=== PATIENT | male | born 1955 | race Caucasian/White ===

== ENCOUNTER 2020-08-24 11:38 | Inpatient (IN) | payer OTHER ==
[~2020-08-24] VITALS: Ht 165.1 cm; Wt 72.6 kg
[2020-08-24 11:46] VITALS: BP 154/96
[2020-08-24 12:10] LABS: BASO % 0.3 % (0.0-1.0); EOS % 0.5 % (1.0-4.0); HEMATOCRIT 47.2 % (42.0-52.0); LYMPH # 3.4 10*3/uL (1.3-4.4); LYMPH % 44.3 % (27.0-41.0); MEAN CORPUSCULAR HGB 31.5 pg (27.0-31.0); MEAN CORPUSCULAR HGB CONC 33.5 g/dl (33.0-37.0); MEAN PLATELET VOLUME 11.1 fl (9.6-12.3); MONO # 0.7 10*3/uL (0.1-1.0); MONO % 8.7 % (3.0-9.0); NEUT # 3.5 10*3/uL (2.3-7.9); NEUT % 45.9 % (47.0-73.0); PLATELET COUNT AUTOMATED 237 10*3/uL (130-400); RED BLOOD COUNT 5.02 10*6/uL (4.50-5.90); WHITE BLOOD COUNT 7.6 10*3/uL (4.8-10.8)
--- NOTE | 2020-08-24 12:16 | NUR ---
PT DECLINES TO DISROBE AND IS NOT PRESENTING A FLIGHT RISK.
[2020-08-24 12:25] LABS: ALBUMIN 3.6 gm/dl (3.1-4.5); ALKALINE PHOSPHATASE 62 U/L (45-117); BUN 9 mg/dl (7-24); CHLORIDE 104 mmol/L (98-107); CREATININE 0.86 mg/dL (0.70-1.30); POTASSIUM 4.2 mmol/L (3.5-5.1); SGOT/AST 16 IU/L (3-35); SGPT/ALT 22 U/L (12-78); SODIUM 138 mmol/L (136-145); TOTAL PROTEIN 7.5 gm/dL (6.4-8.2)
[2020-08-24 12:28] LABS: BILIRUBIN Negative (Negative); BLOOD Negative (Negative); CLARITY Clear (Clear); COLOR Yellow (Yellow); GLUCOSE Negative (Negative); KETONE Negative (Negative); LEUKO ESTERASE Negative (Negative); NITRITE Negative (Negative); PH 6.5 (4.5-8.0)
--- NOTE | 2020-08-24 12:32 | NUR ---
PT REQUESTS MEAL TRAY. DR AT BEDSIDE FOR EXAMINATION.
[2020-08-24 12:45] LABS: EPITHELIAL CELLS 0-2; MUCOUS 1+
--- NOTE | 2020-08-24 16:27 | NUR ---
CARIDAD WHITE ARRIVES TO BEDSIDE FOR CONSULT. PT REMAINS CALM AND COOPERATIVE, COMPLIANT AND PLEASANT.
--- NOTE | 2020-08-24 16:43 | NUR ---
hiro butt now states she will refer him to our b.h.u. as THE FACILITY THAT SENT PT IS REFUSING TO LET PT RETURN THERE.
--- NOTE | 2020-08-24 17:06 | NUR ---
this client is not suicidal, he does not need a one to one, he should be in view of nurse and staff due to his innapropriate behaviors and impaired insight and judgement,he is easily redirected at this time, malissa ZABALA., BSN, and myself discussed this plan.
[2020-08-24 17:08] LABS: URINE AMPHETAMINES < 1000 (1000ng/ml); URINE BARBITURATES < 200 (200ng/ml); URINE BENZODIAZEPINES < 200 (200ng/ml); URINE CANNABINOIDS (THC) < 50 (50ng/ml); URINE COCAINE < 300 (300ng/ml); URINE METHADONE < 300 (300ng/ml); URINE OPIATES < 300 (300ng/ml)
[2020-08-24 17:11] LABS: URINE PHENCYCLIDINE < 25 (25ng/ml)
--- NOTE | 2020-08-24 19:00 | NUR ---
REPORT FROM JAMES. PT. IS NOT SUICIDAL. DOES NOT REQUIRE 1:1 SITTER. PT. IS IN SIGHT FROM NURSING STATION. WILL CONTINUE TO MONITOR.
--- NOTE | 2020-08-24 19:25 | NUR ---
PT. TALKING TO HIMSELF IN ROOM. WILL CONTINUE TO MONITOR.
--- NOTE | 2020-08-24 20:06 | NUR ---
PATIENT STANDING IN DOOR WAY AT THIS TIME BEEN TOLD MULTIPLE TIMES TO SIT IN BED. PATIENT ASKING TO LEAVE ER KNOWING HE IS GOING UPSTAIRS TO U. RN WILL CONT TO MONITOR.
--- NOTE | 2020-08-24 20:28 | NUR ---
PT. AT DOORWAY ASKING TO LEAVE.
--- NOTE | 2020-08-24 20:30 | NUR ---
ASKED PT. TO SIT DOWN ON BED. PT. WAS COOPERATIVE. WILL CONTINUE TO MONITOR.
--- NOTE | 2020-08-24 20:43 | NUR ---
PT. IS PINKED SLIPPED. NURSING SUPERVISIOR NOTIFIED FOR 1:1 SITTER. WILL CONTINUE TO MONITOR.
--- NOTE | 2020-08-24 20:51 | NUR ---
Spoke with [facility] and they are working on getting the referral reviewed but they are short staffed and cant take this client, if they do accept him until the am. discussed with the nurse and dr kirk, client is pink slipped now because he is becoming agitated and wanting to leave. dr kirk is going to give client some medication. he is now a 1:1 because he is trying to leave and becoming more agitated.
[2020-08-24] MEDS ORDERED: Synthroid,Levo25 MCG PO (20:58)
[2020-08-24] MEDS ORDERED: DAILY VITE1 EACH PO (20:59)
[2020-08-24] MEDS ORDERED: SEROQUEL300 MG PO (21:00)
[2020-08-24] MEDS ORDERED: DEPAKOTE500 MG PO (21:01)
[2020-08-24] MEDS ORDERED: INVEGA3 MG PO (21:03)
[2020-08-24] MEDS ORDERED: FLUPHENAZI25 MG/1 ML IM (21:13)
--- NOTE | 2020-08-24 22:34 | NUR ---
PT. SITTING IN BED, TALKING TO SELF. RR EASY AND NONLABORED, IN NO DISTRESS. 1:[address]WAY. WILL CONTINUE TO MONITOR.
--- NOTE | 2020-08-24 23:14 | NUR ---
PT. RESTING IN BED WITH EYES CLOSED. RR EASY AND NON-LABORED. NO DISTRESS NOTED. 1:1 SITTER AT BEDSIDE. WILL CONTINUE TO MONITOR.
--- NOTE | 2020-08-25 00:48 | NUR ---
PT. RESTING IN BED WITH EYES CLOSED. RR EASY AND NON-LABORED. CALL LIGHT WITHIN REACH. WILL CONTINUE TO MONITOR.
[2020-08-25 01:39] VITALS: BP 142/80
--- NOTE | 2020-08-25 01:42 | NUR ---
PT. RESTING IN BED WATCHING TV. RR EASY AND NON-LABORED. CALL LIGHT IN REACH. WILL CONTINUE TO MONITOR. 1:1 SITTER AT DOORWAY.
--- NOTE | 2020-08-25 02:39 | NUR ---
PT. STANDING BY BEDSIDE WATCHING TV. RR EASY AND NON-LABORED. CALL LIGHT WITHIN REACH. 1:1 SITTER AT BEDSIDE. WILL CONTINUE TO MONITOR.
--- NOTE | 2020-08-25 03:22 | NUR ---
PT. STANDING BESIDE BED, WATCHING TV. COOPERATIVE AT THIS TIME. WILL CONTINUE TO MONITOR. 1:1 SITTER IN DOORWAY.
[2020-08-25 03:40] VITALS: BP 140/74
--- NOTE | 2020-08-25 03:40 | NUR ---
FALLONCJ a 65 year old M admitted via wheel chair from the EMERGENCY ROOM as a emergency 72 hr. hold admission. Arrived on unit at 0340AM. ALLERGIES: PCN. Vital signs are: [id number] 140/74. CLIENT IS PINK SLIPPED AND UNABLE TO SIGN ADMISSION. The client reused to sign the following forms with stated understanding: Authorization For The Release of Medical Information, Clothing List, , Consent and Release Forms/Receipt of Rights, Acknowledgement of Advance Directive Information, Behavioral Health Consent Form, and Informed Consent of Medications. Admitted under the services of Dr. SYDNEE HAIR,CORIE/AJ LOCO. A search was conducted and hazardous articles were removed. Client was oriented to the unit. DAVID SPRINGER
--- NOTE | 2020-08-25 04:04 | NUR ---
NOTIFIED DR AG OF ADMISSION. STATES HE WILL COME SEE CLIENT
--- NOTE | 2020-08-25 04:23 | NUR ---
DR AG ON UNIT TO ASSESS PATIENT.
--- NOTE | 2020-08-25 06:15 | NUR ---
REMAINS SLEEPING. HAS SLEPT 2 HOURS
[2020-08-25 06:16] VITALS: BP 142/74
[2020-08-25 07:23] LABS: ALBUMIN 3.3 gm/dl (3.1-4.5); ALKALINE PHOSPHATASE 63 U/L (45-117); BUN 13 mg/dl (7-24); CHLORIDE 106 mmol/L (98-107); CREATININE 0.78 mg/dL (0.70-1.30); POTASSIUM 4.3 mmol/L (3.5-5.1); SGOT/AST 16 IU/L (3-35); SGPT/ALT 22 U/L (12-78); SODIUM 138 mmol/L (136-145)
[2020-08-25 07:25] LABS: CHOLESTEROL 153 mg/dL (<200); TRIGLYCERIDES 72 mg/dl (<150); VLDL CHOLESTEROL 14 mg/dL (6-40)
[2020-08-25 07:26] LABS: HDL CHOLESTEROL 64 mg/dl (40-60); LDL CHOLESTEROL 75 mg/dL (9-159)
[2020-08-25 07:58] LABS: VITAMIN D, 25-HYDROXY 36.6 ng/mL (30-100)
[2020-08-25 08:00] VITALS: BP 142/74
[2020-08-25 09:05] LABS: FREE T4 0.82 ng/dl (0.76-1.46)
[2020-08-25 09:10] LABS: THYROID STIM HORMONE (HS) 6.97 uIU/ml (0.358-4.75)
--- NOTE | 2020-08-25 09:53 | NUR ---
DR. RODRIGUEZ ON UNIT TO ASSESS PATIENT.
--- NOTE | 2020-08-25 10:37 | NUR ---
PSYCHOSOCIAL HX COMPLETED.
--- NOTE | 2020-08-25 14:16 | NUR ---
P- ISOLATIVE, GUARDED, EVASIVE REGARDING MENTAL HEALTH TREATMENT AND SYMPTOMS. COVERING SYMPTOMS.DENIES EVENTS LEADING UP TO ADMISSION. NO AGGRESSIVE BEHAVIORS. MED COMPLIANT. I- ORIENTATION, MOOD AND BEHAVIORS ASSESSED. ASSESSED PT FOR SI/HI, INTENT OR PLAN. ASSESSED PT FOR S/S HALLUCINATIONS, PARANOIA AND/OR DELUSIONS. MEDICATIONS ADMINISTERED PER PHYSICIAN'S ORDERS. PT INDEPENDENT WITH ADL CARE. ENCOURAGED PT TO ATTEND AND PARTICIPATE IN PALMA [place]IEU GROUPS AND ACTIVITIES. R- PT IS ALERT AND ORIENTED TO PERSON, PLACE, DATE. RESPS EASY AND EVEN ON ROOM AIR. MOOD APPEARS STABLE, AFFECT FLAT. SPEECH IS WNL AND COHERENT, ABLE TO MAKE NEEDS KNOWN WITHOUT DIFFICULTY. PT DENIES SI/HI, INTENT OR PLAN. PT DENIES HALLUCINATIONS, HOWEVER, PT THEN STATES "SOMETIMES I HEAR ECHOES" RN ATTEMPTS TO OBTAIN MORE INFORMATION REGARDING THIS FROM PT, PT STATES "I DON'T HEAR THEM NOW AND THAT'S ALL I'M TELLING YOU PEOPLE. MY DOCTOR KNOWS ABOUT IT AND THAT'S ENOUGH". PT BECOMES VERY GUARDED AND EVASIVE WITH QUESTIONS REGARDING HIS MENTAL HEALTH SYMPTOMS, ATTEMPTS TO COVER SYMPTOMS AND AVOIDS QUESTIONS OR TALKING ABOUT MENTAL HEALTH SUBJECTS. PT NOTED WITH FINE TREMORS TO BILATERAL HANDS. PT DIMINISHES, STATES "ITS FINE. NO TREMORS. I DON'T HAVE TREMORS." PT DENIES ANY OF THE EVENTS THAT WERE REPORTED FROM THE [facility] WHICH LED TO HIS ADMISSION. PT HAS BEEN MEDICATION COMPLIANT THIS DATE WITHOUT DIFFICULTY. ISOLATIVE TO ROOM A MAJORITY OF THE SHIFT. PT DOES COME OUT FOR MEALS AND CAME OUT TO EXERCISE AND WATCH A FEW MINUTES OF THE FOOTBALL GAME WITH PEERS. NO AGGRESSIVE BEHAVIORS AND NO DISTRESS NOTED. P- PLAN TO CONTINUE CURRENT TREATMENT. CONTINUE TO MONITOR MOOD AND BEHAVIORS. PROVIDE APPROPRIATE REORIENTATION AND REDIRECTION NEEDED. CONTINUE TO ENCOURAGE MEDICATION COMPLIANCE WELL GROUP ATTENDANCE AND PARTICIPATION.
[2020-08-25 20:00] VITALS: BP 135/69
--- NOTE | 2020-08-25 21:10 | NUR ---
P--ISOLATIVE, I--DISCUSSED MEDICATIONS. OFFERED 1:1 EMOTIONAL SUPPORT PROVIDED R--I AM FINE THANKS. NO QUESTIONS PLEASE P--MONITOR FOR CHANGES IN MOOD/BEHAVIOR AND Q 15 MINS AND PRN FOR SAFETY
--- NOTE | 2020-08-26 06:03 | NUR ---
SLEPT WELL PAST 2100PM LAB HERE TO DRAW BLOOD
[2020-08-26 07:41] VITALS: BP 118/55; BP 122/58
--- NOTE | 2020-08-26 08:30 | NUR ---
Treatment Plan meeting was held this a.m. with Dr. Michelle, JOHN Baron, RN, AT, PHYSICIAN ASSISTANT SURGERY-S and Chief Of Safety And Protection in attendance. Plan for discharge next week. Pt. came to [facility] from a Longterm in [place] which he is reportedly not able to return to. Will reach out to facility today to discuss discharge Planning.
--- NOTE | 2020-08-26 09:33 | NUR ---
Spoke with Peyton Rojas, pt's case packer from [facility]. Peyton stated that she has only been working with pt for approximately 1 month. Discussed pt's discharge needs. Peyton is hoping that pt will be appropriate for a NF. PASRR will be initiated for discharge planning.
--- NOTE | 2020-08-26 10:52 | NUR ---
CALL FROM LAB REGARDING PT'S CRITICAL AMMONIA LEVEL OF 93. DR RODRIGUEZ UPDATED ON LEVEL AND HE STATED HE WOULD ADD LACTULOSE.
--- NOTE | 2020-08-26 11:13 | NUR ---
Spoke with Kaylen lAegreReal Estate Site Analyst at [facility]. Pt. is an Emergency discharge and cannot return to the [facility] for Safety Reasons.
--- NOTE | 2020-08-26 11:37 | NUR ---
ASSESSMENT AND 1:1 PT WAS COOPERATIVE WITH ASSESSMENT. PT TALKED ABOUT HIS FAMILY, BEING CITIZEN OF [place] AND SWIMMING IN THE OCEAN WITH HIS MOTHER. PT ATTENDED 1:1 IN DAYROOM AND WE DID EXERCISES TOGETHER AND TALKED ABOUT MOVIES. PT ENJOYS WESTERNS, OPERA AND TOLD A STORY ABOUT HIS AUNTS SPIDER MONKEY. PT EXHIBITED NO ADVERSE BEHAVIORS WHILE PRESENT.
--- NOTE | 2020-08-26 15:05 | NUR ---
Observed pt exercising in the activity room. Met with pt afterwards. Pt stated that he doesn't like to watch TV very often but that he likes to exercise. Conversation was then interrupted by another pt.
--- NOTE | 2020-08-26 15:52 | NUR ---
PM GROUP AFTERNOON GROUP THERAPY WAS CONDUCTED BY NURSING STUDENTS. PT ATTENDED AND PARTICIPATED BY WATCHING THE MOVIE.
[2020-08-26 19:02] VITALS: BP 107/58
--- NOTE | 2020-08-26 23:07 | NUR ---
P-ISOLATIVE I-REDIRECTION WITH 1:1 THERAPEUTIC INTERVENTIONS AND PRESENT REALITY. EDUCATE AND ENCOURAGE MEDICATION COMPLIANCE R-PATIENT MEDICATION COMPLIANT AT HS. PATIENT REFUSED NOURISHMENT AND FLUIDS AT HS. PATIENT ISOLATIVE IN ROOM THIS SHIFT. PATIENT STATING "I DIDN'T KNOW I HAVE MORE MEDICINE. THEY GAVE ME THE LIQUID MEDICINE EARLIER AND THEN I HAD DIARRHEA". THIS NURSE EDUCATED PATIENT ON THE LACTULOSE THAT WAS GIVEN ON PRIOR SHIFT AND THE LAB RESULT OF WHY MEDICATION WAS ORDERED. PATIENT STATED "OK". THIS NURSE AND NURSING STAFF CLEANED PATIENTS BATHROOM AND HAD PATIENT WASH HIS HANDS DUE TO STOOL BEING ON HANDS AND TOILET. PATIENT DID NOT WANT TO DISCUSS IF ANY HALLUCINATIONS OR DELUSIONS WERE PRESENT OR DISCUSS HOMICIDAL OR SUICIDAL IDEATIONS. P-CONTINUE TO ENCOURAGE MEDICATION COMPLIANCE, CONTINUE TO PRESENT REALITY, ENCOURAGE GROUP THERAPY WHILE AWAKE
--- NOTE | 2020-08-27 01:19 | NUR ---
PATIENT AMBULATING IN THE HALLWAY. PATIENT ASKING THIS NURSE "WHY IS EVERYTHING SO DARK". THIS NURSE REORIENTED PATIENT TO TIME OF DAY. PATIENT WENT BACK INTO ROOM TO TRY AND SLEEP AT THIS TIME
--- NOTE | 2020-08-27 06:06 | NUR ---
PATIENT SLEPT 7 HOURS OF INTERRUPTED SLEEP THROUGHOUT SHIFT. Q 15 MINUTE CHECKS MAINTAINED. 24 HR chart check completed.
[2020-08-27 07:49] VITALS: BP 118/60
--- NOTE | 2020-08-27 08:30 | NUR ---
Treatment Plan meeting was held this a.m. with Dr. Michelle via telephone, GIFT SHOP MANAGER Loraine, RN, AT, MATCHER LEATHER PARTS-S and Convertible Top Installer in attendance. Plan for discharge at the end of the week, beginning of next week. Pt. requires alternate Placement due to inability to return to [facility].
--- NOTE | 2020-08-27 11:20 | NUR ---
Referral faxed to [facility].
--- NOTE | 2020-08-27 11:37 | NUR ---
AM GROUP PT ATTENDED MORNING GROUP THERAPY AND PARTICIPATED BY SOCIALIZING. PT PARTICIPATED IN AND INITIATED CONVERSATION. PT EXHIBITED NO ADVERSE BEHAVIORS WHILE IN GROUP.
--- NOTE | 2020-08-27 11:47 | NUR ---
[facility] Declined referral due to not taking admissions due to cluster outbreak of Covid 19 in the building.
--- NOTE | 2020-08-27 11:55 | NUR ---
Referral to [facility].
--- NOTE | 2020-08-27 14:52 | NUR ---
Spoke with pt after pt had placed a call to his family. Pt stated that he spoke to his mother. Pt then asked if there was any way that he could live closer to his family in [place]. Asked pt if he had lived in a assisted in the [facility] area before. Pt stated that he had. This senior medical writer then asked pt what happened that brought pt to a assisted in [place] when pt had resided for a number of years prior to [facility]. Pt stated, "That's all in my chart. You can read it there. Maybe you can get me to [place]."
--- NOTE | 2020-08-27 15:42 | NUR ---
PM GROUP PT ATTENDED AFTERNOON GROUP THERAPY AND PARTICIPATED BY ATTEMPTING TO PAINT WITH WATERCOLORS AND LISTENING TO MUSIC. PT WAS CALM AND SOCIALABLE. PT EXHIBITED NO ADVERSE BEHAVIORS WHILE IN GROUP.
--- NOTE | 2020-08-27 16:08 | NUR ---
PASRR completed online in [facility]. Requires further review for Nursing Facility Placement. Faxed Supporting Documentation to [facility] for Further review. Copy Placed in Chart.
--- NOTE | 2020-08-27 19:05 | NUR ---
DR RODRIGUEZ ON UNIT TO SEE PATIENT
[2020-08-27 19:06] VITALS: BP 130/72
--- NOTE | 2020-08-27 23:52 | NUR ---
P-ISOLATIVE I-REDIRECTION WITH 1:1 THERAPEUTIC INTERVENTIONS AND PRESENT REALITY. EDUCATE AND ENCOURAGE MEDICATION COMPLIANCE R-PATIENT MEDICATION COMPLIANT AT HS. PATIENT REFUSED NOURISHMENT BUT PROVIDED FLUIDS AT HS. PATIENT ISOLATIVE IN ROOM THIS SHIFT. PATIENT DID NOT WANT TO DISCUSS IF ANY HALLUCINATIONS OR DELUSIONS WERE PRESENT OR DISCUSS HOMICIDAL OR SUICIDAL IDEATIONS. P-CONTINUE TO ENCOURAGE MEDICATION COMPLIANCE, CONTINUE TO PRESENT REALITY, ENCOURAGE GROUP THERAPY WHILE AWAKE
--- NOTE | 2020-08-28 06:09 | NUR ---
PATIENT SLEPT 2 HOURS OF INTERRUPTED SLEEP THROUGHOUT SHIFT. Q 15 MINUTE CHECKS MAINTAINED. 24 HR chart check completed. PATIENT CONFUSED ABOUT TIME OF DAY THROUGHOUT SHIFT. PATIENT AMBULATING ON UNIT STATING " I CAN'T SLEEP. I STAYED IN MY ROOM ROOM ALL DAY". THIS NURSE ENCOURAGED PATIENT TO COME OUT OF ROOM MORE THROUGHOUT THE DAY TO SEE IF IT WOULD HELP WITH SLEEPING AT NIGHT. PATIENT VERBALIZED UNDERSTANDING AND STATED "I'LL TRY".
[2020-08-28 07:27] VITALS: BP 148/80
--- NOTE | 2020-08-28 08:30 | NUR ---
Treatment Plan meeting was held this a.m. with Dr. Michelle via telephone, CAREER DEVELOPMENT SPECIALIST Loraine, RN, AT, DRY MOLDER-S and Customer Contact Representative in attendance. Plan for discharge Next Week. Pt. requires Placement.
--- NOTE | 2020-08-28 11:42 | NUR ---
AM GROUP/LIGHT THERAPY AND DISCUSSION PT ATTENDED MORNING GROUP THERAPY AND PARTICIPATED IN ALL ACTIVITIES. PT SAT CLOSE TO THE LIGHT BOX AND WAS FASCINATED BY IT. PT STATED, "THIS COST 20 BILLION DOLLARS, AND THIS PUTS GOOD ENERGY INTO THE ROOM" PT EXPRESSED NO PARANOIA OR HALLUCINATIONS WHILE IN GROUP. PT ATTEMPTED A WORDSEARCH BUT HIS VISION PREVENTED HIM FROM DOING IT SO HE JUST WROTE LETTERS ON THE PAPER AND ASKED, "CAN I KEEP THE PAPER? I WANT TO GIVE IT TO MY WOMAN"
--- NOTE | 2020-08-28 13:34 | NUR ---
RAJEEV SEATING AND MOBILITY TECHNOLOGIST ON UNIT TO SEE PT AT THIS TIME, DISCUSSED AMMONIA LEVELS. REPEAT AMMONIA LEVEL ORDERED FOR TOMORROW MORNING.
--- NOTE | 2020-08-28 15:43 | NUR ---
PM GROUP/LEISURE INTERESTS PT ATTENDED AFTERNOON GROUP THERAPY AND PARTICIPATED BY WATCHING A MOVIE. PT WOULD EXIT THE ROOM OCCASIONALLY BUT WOULD RETURN. PT WAS QUIET AND FOCUSED. PT EXHIBITED NO ADVERSE BEHAVIORS WHILE IN GROUP.
--- NOTE | 2020-08-28 16:29 | NUR ---
Spoke with Wily Keith from [facility]. He does have beds available and would like to Onsite Assess Pt. Aide. Advised that Approval would be required to do the Assessment. Will Call Wily segura if Approved.
--- NOTE | 2020-08-28 16:31 | NUR ---
PATIENT RECIEVED INVEGA SUSTENNA 234MG IM IN RIGHT DELTOID.
--- NOTE | 2020-08-28 17:52 | NUR ---
P- EXCERCISING "BOXING" IN THE HALLWAY, MAKING REPEATED PHONE CALLS TO "DARVIN HUNG WOMAN". ADMITS TO HEARING "AN ECHO" I- ORIENTATION, MOOD AND BEHAVIORS ASSESSED. ASSESSED PT FOR SI/HI, INTENT OR PLAN. ASSESSED PT FOR S/S HALLUCINATIONS, PARANOIA AND/OR DELUSIONS. MEDICATIONS ADMINISTERED PER PHYSICIAN'S ORDERS. PROMPTING FOR ADL CARE PROVIDED. ENCOURAGED PT TO ATTEND AND PARTICIPATE IN PALMA MILIEU GROUPS AND ACTIVITIES. R- PT IS ALERT AND ORIENTED TO PERSON, APPROXIMATE PLACE AND TIME. RESPS EASY AND EVEN ON ROOM AIR. MOOD APPEARS STABLE, AFFECT FLAT. SPEECH IS WNL AND COHERENT, ABLE TO MAKE NEEDS KNOWN WITHOUT DIFFICULTY. PT DENIES SI/HI, INTENT OR PLAN. PT ADMITS TO HEARING "AN ECHO". DENIES HEARING VOICES. NO PARANOIA OR DELUSIONS NOTED. PT NOTED OFTEN TO BE STANDING IN HALLWAY STARING AND OFTEN PRACTICING DIFFERENT EXERCISE AND "BOXING" MOVES. PT REPORTS TO [facility] "MY GIRLFRIEND PAYS FOR MY BOXING LESSONS". PT HAS MADE MULTIPLE REPEATED CALLS TO "DARVIN HUNG". PT EASILY REDIRECTED VERBALLY. NO EXIT SEEKING OR AGGRESSIVE BEHAVIORS. MEDICATION COMPLIANT WITHOUT DIFFICULTY. NO DISTRESS NOTED. P- PLAN TO CONTINUE CURRENT TREATMENT, CONTINUE TO MONITOR MOOD AND BEHAVIORS, PROVIDE APPROPRIATE REORIENTATION AND REDIRECTION NEEDED. CONTINUE TO ENCOURAGE MEDICATION COMPLIANCE WELL GROUP ATTENDANCE AND PARTICIPATION.
[2020-08-28 19:06] VITALS: BP 126/68
[2020-08-28 19:21] VITALS: BP 126/68
--- NOTE | 2020-08-29 00:56 | NUR ---
PT CALM AND COOPERATIVE. NO RESPONSE TO INTERNAL STIMULI NOTED. MEDICATION COMPLIANT. NO COMPLAINTS VOICED. NO ADVERSE BEHAVIORS NOTED. UP TO X1 FOR FLUIDS. RESTING IN BED AT THIS TIME.
--- NOTE | 2020-08-29 04:16 | NUR ---
PT SITTING IN DINING ROOM AT THIS TIME. C/O NOT BEING ABLE TO SLEEP. PROVIDED FLUIDS, AND OFFERED 1:1 EMOTIONAL SUPPORT. INTERVENTIONS INEFFECTIVE PT CONTINUES TO SIT IN DINING ROOM. WILL CONTINUE TO ENCOURAGE PT TO REST IN BED.
--- NOTE | 2020-08-29 05:43 | NUR ---
SLEPT 3.5 HOURS INTERRUPTED.
[2020-08-29 07:26] VITALS: BP 140/58
--- NOTE | 2020-08-29 08:30 | NUR ---
Treatment Plan meeting was held this a.m. with Dr. Michelle, RN, AT, FEATHER BALER-S and Correspondence Dictator in attendance. Plan for discharge once placement is secured. Wily Inna from [facility] will onsite Assess Pt. [place] at 2:00 p.m. for Possible Placement. Permission Given by Dr. Michelle Casino Manager of [facility] and Linette Pavon Director of [facility] to have Mr. Keith inview Pt. using Covid Protective Measures.
--- NOTE | 2020-08-29 11:46 | NUR ---
AM GROUP PT ATTENDED MORNING GROUP THERAPY AND PARTICIPATED IN ALL ACTIVITIES. PT WAS FOCUSED AND QUIET. PT EXHIBITED NO ADVERSE BEHAVIORS WHILE IN GROUP.
--- NOTE | 2020-08-29 12:09 | NUR ---
PASRR returns. Pt. is approved for Nursing facility. Copy placed in Pt. chart.
--- NOTE | 2020-08-29 13:17 | NUR ---
Gained permission for Wily Vega of [facility] to have onsight visit with pt for possible placement. Spoke with Wily who stated that he will attempt to meet pt today or tomorrow at the latest, Wily will call prior to coming to [facility].
--- NOTE | 2020-08-29 15:50 | NUR ---
PM GROUP/FUN AND GAMES PT ATTENDED AFTERNOON GROUP THERAPY AND PARTICIPATED BY LISTENING TO MUSIC AND OBSERVING. PT EXHIBITED NO ADVERSE BEHAVIORS WHILE IN GROUP.
--- NOTE | 2020-08-29 16:03 | NUR ---
NO ADVERSE MOODS OR BEHAVIORS NOTED. PT IS ALERT AND ORIENTED TO PERSON, APPROXIMATE PLACE AND TIME. RESPS EASY AND EVEN ON ROOM AIR. MOOD STABLE, AFFECT FLAT. SPEECH IS COHERENT, ABLE TO MAKE NEEDS KNOWN WITHOUT DIFFICULTY. PT DENIES SI/HI, INTENT OR PLAN. PT DENIES HALLUCINATIONS, NO RESPONSE TO INTERNAL STIMULI NOTED. NO PARANOIA OR DELUSIONS NOTED. PT IS CALM, COOPERATIVE, MEDICATION COMPLIANT WITHOUT DIFFICULTY. NO AGGRESSIVE BEHAVIORS. NO DISTRESS NOTED. PLAN TO CONTINUE CURRENT TREATMENT, CONTINUE TO MONITOR MOOD AND BEHAVIORS, PROVIDE APPROPRIATE REORIENTATION AND REDIRECTION NEEDED. CONTINUE TO ENCOURAGE MEDICATION COMPLIANCE WELL GROUP ATTENDANCE AND PARTICIPATION.
[2020-08-29 19:47] VITALS: BP 116/80
--- NOTE | 2020-08-29 23:25 | NUR ---
NO ADVERSE MOODS OR BEHAVIORS NOTED. PT ALERT TO SELF AND APPROX PLACE/TIME. CALM, COOPERATIVE AND INTERACTIVE WITH STAFF. NO RESPONSE TO INTERNAL STIMULI NOTED. DENIES SI/HI. MEDICATION COMPLIANT. NO COMPLAINTS VOICED. NO S/S DISTRESS NOTED. Q 15 MIN CHECKS MAINTAINED AND PRN.
--- NOTE | 2020-08-30 06:11 | NUR ---
SLEPT PAST 2300 WITH X1 BRIEF AWAKENING.
[2020-08-30 07:46] VITALS: BP 128/76
--- NOTE | 2020-08-30 08:30 | NUR ---
Treatment Plan meeting was held this a.m. with Dr. Michelle, JOHN Baron, RN, AT, SUGAR COATING HAND-S and Brick Or Block Maker in attendance. Plan for discharge Next week. Pt. cannot return to senior living. Onsite today with [facility] at 2:00 p.m. with Wily Keith for Possible Placement.
--- NOTE | 2020-08-30 11:38 | NUR ---
AM GROUP PT DID NOT ATTEND MORNING GROUP THERAPY. PT WAS IN BED RESTING.
--- NOTE | 2020-08-30 15:36 | NUR ---
PM GROUP/GRATITUDE PT ATTENDED AFTERNOON GROUP THERAPY AND PARTICIPATED BY WATCHING A MOVIE. PT GOT UP AND LEFT THE ROOM FOR A FEW MINUTES, RETURNED AND BEGAN TALKING TO HIMSELF. PT SOUNDED UPSET AND WAS ASKED IF EVERYTHING WAS OKAY? PT RESPONDED, "I JUST WANT TO BE LEFT ALONE PLEASE MAAM" PT WAS GIVEN SPACE AND CONTINUED TO TALK TO HIMSELF. PT WAS CALLED OUT BY RIGGER CHIEF AND DID NOT RETURN
--- NOTE | 2020-08-30 16:18 | NUR ---
PPD TEST ADMINISTERED TO RIGHT FOREARM.
--- NOTE | 2020-08-30 16:21 | NUR ---
Met with pt this afternoon along with Wily Vega of [facility] and Marixa [facility] office workforce planner. Wily provided information about his long-term to pt and completed his assessment and interview of pt. Wily stated that he needs to research pt's finances and also plans on speaking to the dedicated owner operator of the long-term where pt previously resided. Wily will contact this chief underwriter on Marixa early next week with decision.
--- NOTE | 2020-08-30 16:25 | NUR ---
Spoke with pt after his meeting with Wily from [facility]. Pt stated that he would like to live at this shelter so that he will be closer to his parents. Pt did say that he would like "his woman" Aundrea contacted about this move.
--- NOTE | 2020-08-30 16:39 | NUR ---
Pt. requires second Negative Covid Swab and Negative PPD results Prior to Discharge to Assisted.
--- NOTE | 2020-08-30 16:40 | NUR ---
PT REQUESTED THIS NURSE SPEAK WITH "HIS WOMAN" ABHILASH AND LET HER KNOIW THAT HE WILL BE GOING TO A [facility] NEXT WEEK. ADVISED THAT ONCE WE HAVE THE ADDITIONAL INFO HE CAN RELAY IT TO HER.
--- NOTE | 2020-08-30 17:26 | NUR ---
PT DAUGHTER CALLED IN AND SPOKE WITH PT, PT ASKED THAT WE TALK TO HER LET HER KNOW ABOUT GOING TO THE HOME. THIS NURSE SPOKE WITH HIS DAUGHTER EDWIN AND ADVISED THAT [facility] WAS HERE TO ASSESS PT TODAY AND WE WILL HAVE MORE INFO NEXT WEEK. PER DAUGHTER SHE WILL LIKE TO BE CALLED WITH JAIL ADDRESS AND INFORMATION ONCE DC PLAN IS COMPLTE. DAUGHTER EDWIN AND PHONE NUMBER IS [phone] AND SHE IS AVALIABLE AFTER 230PM NEXT WEEK.
[2020-08-30 19:05] VITALS: BP 125/63
--- NOTE | 2020-08-30 23:20 | NUR ---
PT ALERT TO SELF, APPROX PLACE AND TIME. MOOD STABLE. NO RESPONSE TO INTERNAL STIMULI NOTED. CALM AND COOPERATIVE WITH STAFF. MEDICATION COMPLIANT AND EDUCATION PROVIDED. PT RESTING IN BED THROUGHOUT SHIFT WITH NO COMPLAINTS VOICED. INDEOENDENT WITH ADLS. Q 15 MIN CHECKS MAINTAINED AND PRN.
--- NOTE | 2020-08-31 06:06 | NUR ---
PT SLEPT 8.5 HOURS INTERRUPTED. 24 HR chart check completed.
[2020-08-31 07:47] VITALS: BP 112/60
--- NOTE | 2020-08-31 10:37 | NUR ---
DR RODRIGUEZ AND DR VIVEROS ON UNIT TO ASSESS PT, UPDATE PROVIDED.
--- NOTE | 2020-08-31 12:29 | NUR ---
P: AUDITORY AND VISUAL HALLUCINATIONS: PATIENT STATES "I HEAR A LITTLE GIRL TALKING TO ME IN [place], NOTHING BAD" PATIENT RESPONDING TO INTERNAL STIMULI DURING LUNCH, TALKING TO UNSEEN OTHER. I: ONE ON ONE FOR EMOTIONAL SUPPORT, PRESENT REALITY- ORIENTAION AND REDIRECTION NEEDED. R: EFFECTIVE. PATIENT IS ALERT TO PERSON, AWARE OF BEING IN HOSPITAL. STATES "IT AUGUST OR SEPTEMBER" (PERSON AND PLACE). MOOD IS STABLE, PLEASANT DEMEANOR. DENIES ANY DELUSION, HI/SI OR PAIN. 1 PERSON VERBAL CUEING WITH ACTIVITIES OF DAILY LIVING, CONTINENT OF BOWEL AND BLADDER. SET UP FOR MEALS, INTAKES ARE GOOD WITH ADEQUATE FLUIDS. AMBULATORY WITH STEADY GAIT. MEDICATION COMPLAINT WITH EDUCATION PROVIDED. Q 15 MINUTE SAFETY CHECKS MAINTAINED. PATIENT RECIEVED INVEGA SUSTENNA 156MG IN LEFT DELTOID PER REQUEST AND TOLERATED WELL. P: CONTINUE TO MONITOR MOOD, FOR HALLUCINATIONS/DELUSIONS, MEDICATION COMPLIANCE. PROVIDE ONE ON ONE FOR EMOTIONAL SUPPORT, REDIRECTION AND ORIENTATION NEEDED.
[2020-08-31 20:00] VITALS: BP 124/80
--- NOTE | 2020-08-31 22:33 | NUR ---
ISOLATIVE TO ROOM BUT DID COME DOWN FOR SNACK. DENIES ANY PROBLEMS AT THIS TIME. DENIES HALLUCINATIONS AT THIS TIME. TOOTH BRUSH AND PASTE PROVIDED FOR ORAL CARE. WILL MONITOR FOR CHANGES IN MOOD/BEHAVIOR AND Q 15 MINS AND PRN FOR SAFETY
--- NOTE | 2020-09-01 06:43 | NUR ---
SLEPT APPROX 7.5 HOURS INTERUPTED. UP ONCE TO GET WATER. UP ONCE THINKING IT WAS MORNING. EASILY REDIRECTED. MOVES SELF WITHOUT DIFFICULTY
[2020-09-01 07:16] VITALS: BP 122/70
--- NOTE | 2020-09-01 08:04 | NUR ---
MEDICATION COMPLIANT. ATE BREAKFAST. DENIES AUDITORY HALLUCINATIONS BUT ACTIVELY TALKING TO UNSEEN OTHERS.
--- NOTE | 2020-09-01 10:48 | NUR ---
DR BERUMEN ON UNIT TO ASSESS PT, UPDATE PROVIDED.
--- NOTE | 2020-09-01 12:30 | NUR ---
DR RODRIGUEZ ON UNIT TO ASSESS PT, UPDATE PROVIDED.
--- NOTE | 2020-09-01 16:06 | NUR ---
P: PT APPROACHES THE NURSES STATION AND BEGINS TALKING IN A MIX OF DJIBOUTIAN AND OMANI WHILE STARING OFF. WHEN ASKED WHO HE WAS TALKING TO, PT STATED "I AIN'T TALKIN TO NO ONE, THERE AIN'T NOTHING WRONG WITH ME." PT MOVED TO NEAR THE WINDOWS OF DINING ROOM AND CONTINUES TO SPEAK MIX OF DJIBOUTIAN ADN OMANI WITH NURSE UNABLE TO TELL EXACTLY WHAT PT IS SAYING WHILE STARING OFF. PT SITTING IN DINING ROOM OBSERVED TO BE SPEAKING TO UNSEEN OTHERS. PT ISOALTIVE TO SELF/ROOM THROUGHOUT THE DAY, LITTLE TO NO INTERACTION NOTED WITH STAFF OR PEERS. I: PROVIDE EMOTIONAL SUPPORT AND 1:1 FOR PT TO VOICE FEELINGS, RE-ORIENT AND PRESENT REALITY, ENCOURAGE GROUP PARTICIPATION AND SOCIALIZATION R: PT ALERT TO PERSON AND PLACE, UNSURE OF MONTH OR YEAR. PT MED COMPLIANT WITHOUT DIFFICULTY, MED EDUCATION PROVIDED. PT CONTINUES WITH NONSENSICAL SPEECH IN A MIX OF DJIBOUTIAN AND OMANI. NURSE ATTEMPTED TO CONVERSE WITH PT AND HE STATED "AIN'T NOTHING WRONG WITH ME, I DIDN'T SAY NOTHING.", PT IRRITABLE WITH STAFF. PT RETURNS TO DINING ROOM AND CONTINUES TO SPEAK TO UNSEEN OTHERS. PT DENIES A/V HALLUCINATIONS.PT CONTINUES TO ISOLATE TO SELF/ROOM THROUGHOUT THE DAY, LITTLE TO NO INTERACTION WITH STAFF OR PEERS. PT DENIES SUICIDAL THOUGHTS. PT AMBULATORY THROUGHOUT UNIT, GAIT STEADY. PT CONTINENT OF BOWEL ADN BLADDER. PT REFUSES TO SHOWER INSTEAD CHOSES TO CLEAN UP AT THE SINK EACH DAY. P: MONITOR PT BEHAVIORS ON Q15 MIN SAFETY CHECKS, ENCOURAGE PT TO VOICE HALLUCINATIONS, PRESENT REALITY AND RE-ORIENT NEEEDED, PROVIDE EMOTIONAL SUPPORT AND 1:1 FOR PT TO VOICE FEELINGS, ENCOURAGE GROUP PARTICIPATION AND SOCIALIZATION
--- NOTE | 2020-09-01 17:15 | NUR ---
PT REFUSED DINNER STATING "AIN'T GO NO APPETITE". STAFF INQUIRED IF PT WAS FEELING UNWELL, PT STATED "THERE AIN'T NOTHING WRONG, I JUST DON'T WANT IT." STAFF ENCOURAGED PO INTAKE, PT CONTINUES TO REFUSE.
[2020-09-01 19:26] VITALS: BP 132/75
--- NOTE | 2020-09-01 19:56 | NUR ---
SISTER CALLED AND CJ IN ROOM CALLED HIM AND HE REFUSED PHONE CALL. TELL HER TO CALL TOMORROW. SISTER INFORMED
--- NOTE | 2020-09-01 21:31 | NUR ---
ISOLATIVE TO ROOM. MEDICATION EDUCATION COMPLETED PRIOR TO PASSING MEDICATIONS. CLIENT ASKED ME IF I WAS [place] AND REPLIED YES. HE SAID OK I USED TO BE ON COGENTIN I GUESS IF THEY WANTED ME ON IT I WOULD BE. REVIEWED THAT COGENTIN CAN BE USED FOR TREMORS. HE REPLIED OK GOOD NIGHT. LAYED DOWN AND COVERED HIS HEAD WITH BLANKET. WILL MONITOR FOR CHANGES IN MOOD/BEHAVIOR AND Q15 MINS AND PRN FOR SAFETY
--- NOTE | 2020-09-02 05:49 | NUR ---
24 HR chart check completed. SLEPT APPROX 8 HOURS
[2020-09-02 08:00] VITALS: BP 118/89
--- NOTE | 2020-09-02 11:24 | NUR ---
Received a voicemail message from pt's hospice case manager Peyton Ma. Returned the call and left a message providing pt update.
--- NOTE | 2020-09-02 11:43 | NUR ---
AM GROUP PT WAS PRESENT FOR MORNING GROUP THERAPY SEATED AT A TABLE BY HIMSELF TALKING TO HIMSELF. PT WAS GREETED AND ASKED IF I COULD GET HIM SOMETHING? PT ASKED, "LIKE WHAT?" I INFORMED PT THAT I COULD GET HIM ANY ACTIVITY TO DO. PT STATED, "OH, NO I DON'T WANT NO ACTIVITY" PT THEN EXITED THE DAYROOM AND DID NOT RETURN.
--- NOTE | 2020-09-02 13:10 | NUR ---
DR. RODRIGUEZ ON UNIT TO ASSESS PATIENT.
--- NOTE | 2020-09-02 14:30 | NUR ---
P: AUDITORY HALLUCINATION, CONTINUOUS TALKING TO UNSEEN OTHERS. PATIENT GUARDED WITH NURSE AND WOULD NOT ELEBORATE. STATING "MY DOCTOR KNOWS" I: ONE ON ONE FOR EMOTIONAL SUPPORT, PATIENT IS SELF AWARE AND DISMISSES HAVING HALLUCINATIONS. PATIENT ENCOURAGE TO ATTEND GROUP SESSIONS. R: EFFECTIVE. PATIENT ATTENDING GROUP SESSION, KEEPING TO SELF, NOT SOCIALIZING WITH OTHER PATIENT OR STAFF, WILL ACCEPT PHONE CALLS FROM GIRLFRIEND. PATIENT IS ALERT TO SELF AND OF BEING IN HOSPITAL. PATIENT DOES HAVE SOME CONFUSION, NOTE AWARE OF WHAT HOSPITAL, DATE OR SITUATION. MEDICATION COMPLIANT AND Q 15 MINUTE SAFETY CHECKS MAINTAINED. PATIENT REQUIRES VERBAL CUEING FOR ACTIVITIES OF DAILY LIVING, CONTINENT OF BOWEL AND BLADDER. SET UP FOR MEAL, INTAKE ARE GOOD, ATTENDS GROUP SESSION. AMBULATORY WITH STEADY GAIT. P: CONTINUE TO MONITOR FOR HALLUCINATIONS AND MOOD. PROVIDE ONE ON ONE FOR EMOTIONAL SUPPORT, REDIRECT/PRESENT ORIENTATION NEEDED AND MONITOR MEDICATION COMPLAINCE.
--- NOTE | 2020-09-02 15:39 | NUR ---
Shift chart check completed.
--- NOTE | 2020-09-02 15:39 | NUR ---
PM GROUP PT ATTENDED AFTERNOON GROUP THERAPY AND PARTICIPATED BY WATCHING A MOVIE. PT WILL SPEAK WHEN SPOKEN TO BUT OTHERWISE SITS AND TALKS TO HIMSELF. PT WAS TALKING TO UNSEEN OTHERS IN YI BUT WAS CALM AND NOT AGITATED.
[2020-09-02 19:07] VITALS: BP 127/78
--- NOTE | 2020-09-02 23:18 | NUR ---
PT ALERT TO SELF AND APPROX PLACE. MOOD STABLE. NO RESPONSE TO INTERNAL STIMULI NOTED. SHAKES HEAD NO WHEN ASKED IF ANY SI/HI. PT CALM, COOPERATIVE AND INTERACTIVE WITH STAFF. PT ANSWERS QUESTIONS APPROPRIATELY. AMBULATES INDEPENDENTLY WITH STEADY GAIT. MEDICATION COMPLIANT AND EDUCATION PROVIDED. HS SNACK AND FLUIDS ACCEPTED. NO COMPLAINTS VOICED. Q 15 MIN CHECKS MAINTAINED AND PRN.
--- NOTE | 2020-09-03 05:57 | NUR ---
PT SLEPT PAST 2130. 24 HR chart check completed.
--- NOTE | 2020-09-03 06:27 | NUR ---
OFFERED PT TO SHOWER BUT HE DECLINES. PT WOULD ONLY PUT ON A CLEAN SHIRT AND DECLINES TO CHANGE PANTS. PT STATES, "I'VE BEEN WASHING UP."
[2020-09-03 07:29] VITALS: BP 118/68
--- NOTE | 2020-09-03 09:00 | NUR ---
Treatment Plan meeting was held this a.m. with JOHN Baron, RN, AT, JAMIA-S and Law Enforcement Director. Plan for discharge /Wednesday. Waiting for Placement possibly at [facility].
--- NOTE | 2020-09-03 11:41 | NUR ---
AM GROUP PT ATTENDED MORNING GROUP THERAPY AND PARTICIPATED BY WATCHING A MOVIE. PT WAS QUIET AND FOCUSED. PT DID NOT TALK TO HIMSELF OR TO UNSEEN OTHERS THIS MORNING HE HAS IN PREVIOUS DAYS. PT EXHIBITED NO OTHER ADVERSE BEHAVIORS WHILE IN GROUP WELL.
--- NOTE | 2020-09-03 15:02 | NUR ---
PM GROUP PT WAS IN THE HALLWAY AT THE START OF GROUP OUTSIDE OF THE DAYROOM AND WAS INVITED IN. PT REPLIED, "NO, I'M WAITING FOR MY SHOT" PT LATER ENTERED THE ROOM AGITATED AND SWEARING, PT SAT IN A COMFY CHAIR AT THE BACK OF THE ROOM AND FOR THE REMAINDER OF GROUP CONTINUED TO TALK AND SWEAR. IF THE PT WAS SPOKEN TO HE WOULD PARROT WHAT WAS SAID. PT WAS LEFT TO CALM HIMSELF AND SEEMED LESS AGITATED AT THE END OF GROUP. PT WAS UPSET BECAUSE, "I WANT OUT OF HERE!"
--- NOTE | 2020-09-03 17:10 | NUR ---
P: TALKING TO UNSEEN OTHERS, HITTING SELF. I: 1:1 FOR THERAPEUTIC COMMUNICATION, ASSIST PT WITH COPING SKILLS. MONITORED WITH Q15 MINUTE SAFETY CHECKS. ENCOURAGED PT TO ATTEND GROUPS AND MEDICATION COMPLIANCE. ENCOURAGED INTERACTION WITH STAFF AND PEERS. R: PT EASILY REDIRECTED. MEDICATION COMPLIANT. P: CONTINUE ALL ABOVE INTERVENTIONS.
[2020-09-03 19:53] VITALS: BP 124/67
--- NOTE | 2020-09-03 23:36 | NUR ---
P-ISOLATIVE. I- ALERT TO SELF AND APPROX PLACE. 1:1 EMOTIONAL SUPPORT PROVIDED, ENCOURAGED USE OF COPING SKILLS. ASSESSED MOOD, BEHAVIOR AND HALLUCINATIONS/DELUSIONS. R-PT ACCEPTED INTERVENTIONS. PT DID NOT RESPOND WHEN ASKED IF HAVING HALLUCINATIONS/ DELUSIONS. MOOD STABLE. NO RESPONSE TO INTERNAL STIMULI NOTED. P-WILL CONTINUE CURRENT TX PLAN. WILL CONTINUE TO ENCOURAGE USE OF COPING SKILLS. Q 15 MIN CHECKS MAINTAINED AND PRN.
--- NOTE | 2020-09-04 05:44 | NUR ---
PT SLEPT 4.5 HOURS INTERRUPTED. 24 HR chart check completed.
[2020-09-04 08:00] VITALS: BP 119/78
--- NOTE | 2020-09-04 09:00 | NUR ---
Treatment Plan meeting was held this a.m. with Dr. Michelle via telephone, WIRE SAWYER Loraine, RN, AT, LABORATORY AIDE-S and Director Content Marketing in attendance. Plan for discharge once Placement Secured. Pt. has been assessed for [facility] and Due Diligence Period is now where Background Check and Information is being shared between Chairman & Co Founder, Payee and Previous Living Environment before acceptance at [facility]. Referral Pending to [facility]. No Beds Available at this time.
--- NOTE | 2020-09-04 11:19 | NUR ---
Met with pt early this AM and informed him that this appeals writer continues to wait on a decision about pt's acceptance to [facility]. Pt voiced understanding. Left a voicemail message for Wily Vega of [facility] requesting an update to status of pt's referral. Await return call. Met with pt briefly again and informed him that this appeals writer will let pt know as soon as Wily returns the call. Pt voiced understanding.
--- NOTE | 2020-09-04 11:47 | NUR ---
AM GROUP PT ATTENDED MORNING GROUP THERAPY BUT CHOSES NOT TO PARTICIPATE. PT SAT AT A TABLE ALONE BY THE WINDOW, STARED FORWARD AND TALKED TO AN UNSEEN OTHER. PT WAS NOT AGITATED AND WOULD RESPOND TO QUESTIONS APPROPRIATELY.
--- NOTE | 2020-09-04 14:37 | NUR ---
P: AUDITORY HALLUCINATION, CONTINUOUS TALKING TO UNSEEN OTHERS. PATIENT DISREGARDED NURSE WHEN ASKING ABOUT HALLUCINATIONS AND WOULD NOT ELABORATE. I: ONE ON ONE FOR EMOTIONAL SUPPORT, PATIENT IS SELF AWARE AND DISMISSES HAVING HALLUCINATIONS. PATIENT ENCOURAGE TO ATTEND GROUP SESSIONS BUT DID NOT PARTICIPATE. R: EFFECTIVE. PATIENT ATTENDING GROUP SESSION, KEEPING TO SELF, NOT SOCIALIZING WITH OTHER PATIENT OR STAFF, WILL ACCEPT PHONE CALLS FROM GIRLFRIEND. PATIENT IS ALERT TO SELF AND OF BEING IN HOSPITAL. PATIENT DOES HAVE SOME CONFUSION, NOTE AWARE OF WHAT HOSPITAL, DATE OR SITUATION. REFERS BACK TO THE NURSE FOR ANSWER THESE QUESTIONS. MEDICATION COMPLIANT AND Q 15 MINUTE SAFETY CHECKS MAINTAINED. PATIENT TOOK SHOWER THIS MORNING- GOOD IMPROVEMENT FOR SELF CARE. PATIENT REQUIRES VERBAL CUEING FOR ACTIVITIES OF DAILY LIVING, CONTINENT OF BOWEL AND BLADDER. SET UP FOR MEAL, INTAKE ARE GOOD, ATTENDS GROUP SESSION. AMBULATORY WITH STEADY GAIT. P: CONTINUE TO MONITOR FOR HALLUCINATIONS AND MOOD. PROVIDE ONE ON ONE FOR EMOTIONAL SUPPORT, REDIRECT/PRESENT ORIENTATION NEEDED AND MONITOR MEDICATION COMPLAINCE.
--- NOTE | 2020-09-04 14:55 | NUR ---
Spoke to Wily Vega of [facility]. Wily apologized for the delay in determining if pt will be accepted there. Due to a family crisis, Wily has been unable to speak to all of the contacts that are familiar with pt in order for Wily to make his decision. Wily did state that it is looking like he will probably accept pt but he needs an additional day. Wily to call this telegraphic typewriter operator tomorrow with answer. After speaking to Wily, this telegraphic typewriter operator provided this update to pt.
--- NOTE | 2020-09-04 15:41 | NUR ---
PM GROUP PT ATTENDED AFTERNOON GROUP THERAPY AND PARTICIPATED BY WATCHING A MOVIE. PT SPOKE TO AN UNSEEN OTHER THE ENTIRE TIME BUT WAS NOT AGITATED AND SPOKE IN A NORMAL VOICE.
[2020-09-04 20:00] VITALS: BP 104/60
--- NOTE | 2020-09-05 01:38 | NUR ---
P-ISOLATIVE. I- ALERT TO SELF AND APPROX PLACE. 1:1 EMOTIONAL SUPPORT PROVIDED, ENCOURAGED USE OF COPING SKILLS. ASSESSED MOOD, BEHAVIOR AND HALLUCINATIONS/DELUSIONS. HS SNACK AND NOURISHMENT PROVIDED. R-PT ACCEPTED INTERVENTIONS. PT DID NOT RESPOND WHEN ASKED IF HAVING HALLUCINATIONS/ DELUSIONS. MOOD STABLE. NO RESPONSE TO INTERNAL STIMULI NOTED. HS SNACK CONSUMED AND FLUIDS ACCEPTED. PT STATES, "I AM READY TO LEAVE. AM I GOING TO THAT CARE HOME." P-WILL CONTINUE CURRENT TX PLAN. WILL CONTINUE TO ENCOURAGE USE OF COPING SKILLS. Q 15 MIN CHECKS MAINTAINED AND PRN.
--- NOTE | 2020-09-05 06:19 | NUR ---
PT SLEPT 7 HOURS. 24 HR chart check completed.
--- NOTE | 2020-09-05 06:35 | NUR ---
DR. PETERS NOTIFIED FOR NEED OF PODIATRY CONSULT. PT PLACE UNDER DR. SALDANA FOR NAIL CARE.
[2020-09-05 07:22] VITALS: BP 104/58
--- NOTE | 2020-09-05 08:06 | NUR ---
Patient resting quietly with no c/o discomfort. Respirations easy and regular. Vital signs stable. No overt distress. MELY SALAZAR
--- NOTE | 2020-09-05 10:30 | NUR ---
Treatment Plan meeting was held this a.m. with Dr. Michelle RN, CT SCAN SPECIAL PROCEDURES TECHNOLOGIST-S and Cream Tester in attendance. Plan for discharge once Placement is secured. Pending Placement at [facility].
[2020-09-05] MEDS ORDERED: TRIHEXYPHENIDYL2 M3 PO (10:32)
[2020-09-05] MEDS ORDERED: INVEGA SUSTENN156 MG IM (10:32)
[2020-09-05] MEDS ORDERED: FLUPHENAZI25 MG/1 ML IM (10:32)
--- NOTE | 2020-09-05 11:39 | NUR ---
AM GROUP PT ATTENDED MORNING GROUP THERAPY AND PARTICIPATED IN ALL ACTIVITIES. PT WAS CALM AND QUIET UNTIL AFTER SPEAKING WITH MEDICAL RECORDS TECH IN THE HALLWAY. PT RETURNED TO GROUP, SAT DOWN AND BEGAN TALKING TO HIMSELF OR UNSEEN OTHER, SWEARING AND WAS HEARD TO SAY, "THEY'RE GOING TO CRUCIFY ME"
--- NOTE | 2020-09-05 12:28 | NUR ---
Pt was inquiring about his discharge and voicing that he expected it to be today. Informed pt that this property underwriter is waiting on Wily Vega of [facility] to call today and that this property underwriter will include pt in the phone conversation. Pt voiced acceptance of this.
--- NOTE | 2020-09-05 15:29 | NUR ---
PM GROUP PT ATTENDED AFTERNOON GROUP THERAPY AND PARTICIPATED IN ALL ACTIVITIES TO THE BEST OF HIS ABILITY. PT WAS QUIET AND OBSERVANT. PT EXHIBITED NO ADVERSE BEHAVIORS WHILE IN GROUP
[2020-09-05 19:12] VITALS: BP 102/64
--- NOTE | 2020-09-05 22:55 | NUR ---
PT ALERT TO PERSON AND PLACE. MOOD STABLE. NO RESPONSE TO INTERNAL STIMULI NOTED. CALM, COOPERATIVE AND INTERACTIVE WITH THIS STAFF. AMBULATES WITH STEADY GAIT. HS SNACK AND FLUIDS ACCEPTED. MEDICATION COMPLIANT AND EDUCATION PROVIDED. Q 15 MIN CHECKS MAINTAINED AND PRN.
--- NOTE | 2020-09-06 06:23 | NUR ---
PT SLEPT 9 HOURS INTERRUPTED. 24 HR chart check completed.
[2020-09-06 07:27] VITALS: BP 103/63
--- NOTE | 2020-09-06 09:00 | NUR ---
Treatment Plan meeting was held this a.m. with JOHN Baron, RN, AT, JAMIA-S and Coach Mechanic in attendance. Plan for discharge Next Week on Wednesday. Pt. accepted at [facility].
--- NOTE | 2020-09-06 09:54 | NUR ---
DR BERUMEN ON UNIT TO ASSESS PT, UPDATE PROVIDED.
--- NOTE | 2020-09-06 11:01 | NUR ---
NO ADVERSE MOODS OR BEHAVIORS NOTED THIS SHIFT. PT IS ALERT AND ORIENTED TO PERSON, PLACE, APPROXIMATE TIME AND SITUATION. RESPS EASY AND EVEN ON ROOM AIR. MOOD STABLE. AFFECT APPROPRIATE PER PT BASELINE. PT IS CALM, PLEASANT AND COOPERATIVE. PT DENIES SI/HI, INTENT OR PLAN. NO RESPONSE TO INTERNAL STIMULI NOTED. NO PARANOIA OR DELUSIONS NOTED. MEDICATION COMPLIANT WITHOUT DIFFICULTY. NO DISTRESS NOTED. PLAN TO CONTINUE CURRENT TREATMENT.
--- NOTE | 2020-09-06 11:55 | NUR ---
AM GROUP PT ATTENDED MORNING GROUP THERAPY AND PARTICIPATED BY WATCHING A MOVIE. PT WAS QUIET AND FOCUSED. PT EXHIBITED NO ADVERSE BEHAVIORS WHILE IN GROUP.
--- NOTE | 2020-09-06 13:06 | NUR ---
Spoke with Wily Vega of [facility] who confirmed that pt is accepted there. Plan for discharge next week. Met with pt and informed gwendolyn of this. Discussed the details. Pt voiced postive remarks about his move to the [facility].
--- NOTE | 2020-09-06 13:40 | NUR ---
Returned call to Julianna ZABALAbundling machine operator at [facility] and Provided with updates and Discharge Plans.
--- NOTE | 2020-09-06 20:00 | NUR ---
Patient resting quietly with no c/o discomfort. Respirations easy and regular. Vital signs stable. No overt distress. MELY SALAZAR
[2020-09-06 20:03] VITALS: BP 102/59
--- NOTE | 2020-09-07 03:00 | NUR ---
The patient has no complaints and is resting comfortably. MELY SALAZAR
--- NOTE | 2020-09-07 05:25 | NUR ---
PT ALERT, ORIENTED TO PERSON, PLACE, SITUATION, APPROXIMATE TO TIME. PT STATES THAT HE IS ANGRY THAT HE IS HERE UNTIL WEDNESDAY OR WEDNESDAY BECAUSE HE "DOES NOT LIKE LIARS". PT LOUDLY STATING "I HAVE BEEN WAITING EVERY DAY TO LEAVE AND EVERY DAY IT IS ANOTHER DAY. YOU MIGHT LIKE LIARS, BUT I DO NOT". REDIRECTION, EMOTIONAL SUPPORT, AND EDUCATION ON POC PROVIDED. PT RECEPTIVE TO ABOVE. PT THEN CLOSED HIS EYES TO REST, ENDING CONVERSATION WITH THIS NURSE. PT LEFT TO REST. Q15 MIN MONITORING MAINTAINED FOR SAFETY.
--- NOTE | 2020-09-07 06:39 | NUR ---
PATIENT SLEPT APPROX 5.5 HOURS UNINTERRUPTED.
[2020-09-07 07:35] VITALS: BP 112/61
[2020-09-07 19:15] VITALS: BP 110/60
--- NOTE | 2020-09-08 05:29 | NUR ---
Patient slept for approx 5.5 hours. Patient woke up several times during the night walking in hallways but was redirected to bed where he talked to himself until he fell back to sleep.
[2020-09-08 07:09] VITALS: BP 108/64
[2020-09-08 18:34] VITALS: BP 111/74
--- NOTE | 2020-09-09 05:53 | NUR ---
Patient was pleasant in bed oncoming to shift and greeted nurse upon entering room. Patient slept well throughout night for approx. 5 hours interuppted between bathroom breaks. Patient had no complaints during shift. Safety maintained.
[2020-09-09 07:09] VITALS: BP 106/64
--- NOTE | 2020-09-09 09:30 | NUR ---
Treatment team held this AM with Kelli Caal NP, staff development coordinator rn, and this DISABILITY SPECIALIST-S. Discharge plan is for pt to discharge tomorrow to [facility].
--- NOTE | 2020-09-09 13:34 | NUR ---
Met with pt individually. Confirmed discharge date for tomorrow. Pt voiced concern about retrieving his belongings from his previous senior living. Informed pt that this song writer had made Wily Vega of [facility] aware of this need. Pt voiced understanding. Pt was pleasant and appropriate in conversation.
--- NOTE | 2020-09-09 15:03 | NUR ---
Gave report to Requirements Analyst, manager quality improvement and PMHNP about pt. Pt stable, no assaultive behvaviors. A&OX2-3, intermittent confusion. Social work and PMHNP states pt is supposed to transfer out tomorrow to new facility. Pt is aware and happy to be transferred. Pt taking all meds as ordered. STAT labs slightly elevated and slightly low reported to PRACTICE OR STUDENT TEACHER Rose. Blood labs MCH 31.5 (H), 15.0 (H), Neutrophil % 45.9 (L), Lymph % 44.3 (H), EOS % 0.5 (L), BP slightly low On Prolixin and Artane and previous Prolactin lab abnormal and sometimes a s/e of Prolixin. PRACTICE OR STUDENT TEACHER confirmed labs and to f/u. Pt to transfer out tomorrow to facility and will f/u with report to manufacturing supervisor 2nd shift.
[2020-09-09 19:03] VITALS: BP 129/72
--- NOTE | 2020-09-10 05:20 | NUR ---
Patient slept well throughout the night with no interuptions. Safety maintained.
[2020-09-10 08:00] VITALS: BP 118/73
--- NOTE | 2020-09-10 08:16 | NUR ---
PT AWAKE, ALERT AND VERBAL. FED SELF 100% OF BREAKFAST. PT LOOKING FORWARD TO BEING DISCHARGED TODAY. PT OFFERS NO COMPLAINTS. [facility]- ON UNIT TO SEE PT AT THIS TIME.
--- NOTE | 2020-09-10 09:00 | NUR ---
Treatment Plan meeting was held this a.m. with Dr. Michelle via telephone, JOHN Baron RN, AT, [facility] and Asbestos Abatement Technician in attendance. Plan for discharge today. Patient is accepted at [facility]. Follow up appointments scheduled. Pt. will continue to follow with the [facility] in [place] with Kimberli Olmos until Moved to [facility]. Pt. will received Primary Care from [facility].
[2020-09-10] MEDS ORDERED: FLUPHENAZI25 MG/1 ML IM (11:26)
[2020-09-10] MEDS ORDERED: INVEGA SUSTENN156 MG IM (11:26)
--- NOTE | 2020-09-10 11:37 | NUR ---
AM GROUP PT ATTENDED MORNING GROUP THERAPY AND PARTICIPATED BY SOCIALIZING WITH THIS TIRE DEBEADER. PT WAS TALKATIVE AND SPOKE TO HIS CHILDHOOD AND YOUNG ADULTHOOD. PT IS EXCITED TO BE DISCHARGED FROM THE UNIT TODAY.
--- NOTE | 2020-09-10 11:37 | NUR ---
NO ADVERSE MOODS OR BEHAVIORS NOTED THIS SHIFT. PT IS ALERT AND ORIENTED TO PERSON, PLACE, APPROXIMATE TIME AND SITUATION. RESPS EASY AND EVEN ON ROOM AIR. MOOD STABLE. AFFECT APPROPRIATE PER PT BASELINE. PT IS CALM, PLEASANT AND COOPERATIVE. PT DENIES SI/HI, INTENT OR PLAN. NO RESPONSE TO INTERNAL STIMULI NOTED. NO PARANOIA OR DELUSIONS NOTED. MEDICATION COMPLIANT WITHOUT DIFFICULTY. NO DISTRESS NOTED. PLAN TO CONTINUE CURRENT TREATMENT. PT IS LOOKING FORWARD TO BEING DISCHARGED TODAY TO NEW [facility].
[2020-09-10] MEDS ORDERED: Synthroid,Levo25 MCG PO (13:00)
[2020-09-10] MEDS ORDERED: DAILY VITE1 EACH PO (13:01)
--- NOTE | 2020-09-10 14:48 | NUR ---
PATIENT'S RIDE AT ENTRENCE. PATIENT ASSISTED TO WHEELCHAIR. ALL BELONGING AND DISCHARGE INSTRUCTIONS SENT WITH PATIENT OFF UNIT WITH STAFF ASSISTANCE TO PRIVATE VEHICLE.
--- NOTE | 2020-09-10 15:27 | NUR ---
Patient discharged today to [facility]. Follow-up will be with the [facility], Kimberli Olmos NP. Pt's behaviors improved while at [facility]. Pt states that he continues to have auditory hallucinations but that they are not bothersome. Pt was pleasant and cooperative with staff.
--- NOTE | 2020-09-10 15:36 | NUR ---
PM GROUP PT ATTENDED AFTERNOON GROUP THERAPY AND PARTICIPATED BY LISTENING TO MUSIC AND SINGING ALONG. PT EXHIBITED NO ADVERSE BEHAVIORS WHILE IN GROUP.
[2020-09-10] MEDS ORDERED: LORAZEPAM1 MG PO (15:40)
[2020-09-10] MEDS ORDERED: ZIPRASIDONE HCL20 M1 PO (15:40)
--- NOTE | 2020-09-10 16:11 | NUR ---
PRIOR TO DISCHARGE THIS RN RECIEVED PHONE CALL FROM PT'S PHARMACIST SONDRA AT [facility] TO CONFIRM DUE DATES OF PROLIXIN AND INVEGA SUSTENNA INJECTIONS. PHONED AND CONFIRMED DUE DATES FOR THIS MEDICATIONS. PROLIXIN DECANOATE IS TO BE GIVEN 09/17/2020, INVEGA SUSTENNA IS TO BE GIVEN 09/30/2020. CALLED SONDRA AND MADE AWARE OF THE ABOVE. ALSO RECIEVED REQUEST FROM MEHDI SHIN FOR PRN MEDICATION FOR ANXIETY FOR AT [facility]. MOLLY COTTON MADE AWARE, STATES SHE WILL SEND OVER NEW SCRIPTS FOR PRN MEDCIATIONS TO PT'S PHARMACY. JAMIA UPDATED MEHDI SHIN REGARDING THIS.
== END 2020-09-10 14:48 | DRG 750 ==
LOC: ED 11:38 → 3N 08-25 03:12
PROVIDERS: Counselor Professional; Emergency Medicine; ADMIT Psychiatry & Neurology Psychiatry; ATTEND Psychiatry & Neurology Psychiatry
PROC: 0HBRXZZ Excision of Toe Nail, External Approach (ICD-10-PCS; principal; 2020-09-05)
PROC: 0HBRXZZ Excision of Toe Nail, External Approach (ICD-10-PCS; 2020-09-05)
PROC: 0HBRXZZ Excision of Toe Nail, External Approach (ICD-10-PCS; 2020-09-05)
PROC: 0HBRXZZ Excision of Toe Nail, External Approach (ICD-10-PCS; 2020-09-05)
PROC: 0HBRXZZ Excision of Toe Nail, External Approach (ICD-10-PCS; 2020-09-05)
PROC: 0HBRXZZ Excision of Toe Nail, External Approach (ICD-10-PCS; 2020-09-05)
PROC: 0HBRXZZ Excision of Toe Nail, External Approach (ICD-10-PCS; 2020-09-05)
PROC: 0HBRXZZ Excision of Toe Nail, External Approach (ICD-10-PCS; 2020-09-05)
PROC: 0HBRXZZ Excision of Toe Nail, External Approach (ICD-10-PCS; 2020-09-05)
PROC: 0HBRXZZ Excision of Toe Nail, External Approach (ICD-10-PCS; 2020-09-05)
DX: F20.3 Undifferentiated schizophrenia (principal); R45.1 Restlessness and agitation; F17.210 Nicotine dependence, cigarettes, uncomplicated; R73.9 Hyperglycemia, unspecified; Z20.828 Contact with and (suspected) exposure to other viral communicable diseases; E72.20 Disorder of urea cycle metabolism, unspecified; Z71.6 Tobacco abuse counseling; Z88.0 Allergy status to penicillin; Z82.49 Family history of ischemic heart disease and other diseases of the circulatory system; Z83.3 Family history of diabetes mellitus